=== PATIENT | female | born 1940 | race Caucasian/White ===

== ENCOUNTER 2019-08-10 09:38 | Inpatient (IN) | payer MEDICARE, SELFPAY ==
[2019-08-10] VITALS (24 sets, daily range): BP systolic 99–154; BP diastolic 51–99; PULSE 93–154; RESP 18–31; TEMP 36.2–37.3; O2SAT 91–97; BMI 29.4
--- NOTE | ~2019-08-10 | XR_ITS ---
EXAMINATION: XR chest 2V DATE: 08/10/2019 10:23 INDICATION: Cough, wheezing, shortness of breath, and fever. TECHNIQUE: Frontal and lateral views of the chest were obtained. COMPARISON: Chest 2 views 09/09/2016 FINDINGS: The chest demonstrates clear lungs without pneumonia, pleural effusion, or pneumothorax. Th e heart size is normal. There is a left chest wall pacer with leads in the right atrium and right sherlyn tricle. IMPRESSION: 1. No acute cardiopulmonary disease. Reviewed, dictated and finalized at location A. ATION TANK OPERATOR
--- NOTE | 2019-08-10 09:58 | ED.SOB ---
HPI - SOB/Dyspnea General Chief Complaint: Shortness of Breath/Dyspnea Stated Complaint: COUGH/DIFFICULTY BREATHING Time Seen by Provider: 08/10/19 09:48 Source: patient Mode of arrival: ambulatory Limitations: no limitations History of Present Illness HPI Narrative: Pt is a 79 y/o female who presents to the ED with c/o a productive cough with phlegm that started 2 weeks ago. She reports associated SOB and wheezing. Pt has a H/o AFIB and a pacemaker. Her Chef Passenger Vessel is Dr. Bolaños. She denies a fever or chills. MD elicited complaint: cough Onset (ago): week(s) (2) Timing: constant Associated symptoms: wheezing and other (SOB) Related Data Home Medications Medication Instructions Recorded Confirmed albuterol sulfate [ProAir HFA] 1 inh INHALATION QID 08/10/19 atorvastatin 20 mg PO HS 08/10/19 duloxetine 60 mg PO DAILY 08/10/19 ergocalciferol (vitamin D2) 1,250 mcg PO WEEKLY 08/10/19 [Vitamin D2] metoprolol tartrate 50 mg PO Q12H 08/10/19 olmesartan-hydrochlorothiazide 1 tablet PO DAILY 08/10/19 rivaroxaban [Xarelto] 20 mg PO DAILY 08/10/19 Allergies Allergy/AdvReac Type Severity Reaction Status Date / Time iodine Allergy Severe DIFF Verified 08/10/19 09:54 BREATHING, BACK,LEG PAIN AFTER CONTRAST morphine AdvReac Severe Vomiting Verified 08/10/19 09:54 Review of Systems Review of Systems: All systems reviewed & are unremarkable except as noted in HPI and below Constitutional: Constitutional: Denies chills and Denies fever(s) Respiratory: Respiratory: Reports cough, Reports dyspnea and Reports wheezing [facility] Past Medical History Medical History (Updated 08/10/19 @ 12:30 by Anuel Fuchs MD) Afib Anemia Ankle fracture, right Anxiety Arthritis Asthma Bladder cancer Bronchitis DDD (degenerative disc disease) Depression Diabetes mellitus GERD (gastroesophageal reflux disease) HLD (hyperlipidemia) HTN (hypertension) Kidney stones Left trigger finger Nose fracture MISTI on CPAP Osteoporosis Ovarian cyst Right carpal tunnel syndrome Right rotator cuff tear Surgical History Surgical History (Updated 08/10/19 @ 10:08 by Zara Sadler) H/O colonoscopy H/O dilation and curettage H/O repair of right rotator cuff H/O tubal ligation H/O: hysterectomy History of bladder surgery History of carpal tunnel release History of left knee replacement Hx of tonsillectomy Social History Social History (Updated 08/10/19 @ 10:08 by Zara Sadler) Smoking status: Former smoker Gender identity (if verbalized by the patient): Female Exam Narrative: Exam Narrative: GENERAL: Well-appearing, well-nourished, and in no acute distress. HEAD: Normocephalic, atraumatic. EYES: PERRLA and EOMI. ENT: Nares clear, . Mucous membranes moist. NECK: Supple. CHEST: Coarse breath sounds bilaterally HEART: Irregularly irregular and tachycardic ABDOMEN: Soft, nontender, nondistended, normal active bowel sounds. EXTREMITIES: Normal range of motion. No edema. SKIN: Warm, dry, no rash. NEURO: No focal deficits. Alert and oriented x3. PSYCH: Normal mood and affect. Course Consultations Consultation #1: Discussed case with Guera Vieira NP for the hospitalist. Accepted admission. Date: 08/10/19 Time: 12:18 Vital Signs Vital signs: Vital Signs Temperature 36.5 C 08/10/19 09:41 Pulse Rate 154 H 08/10/19 09:41 Respiratory Rate 24 H 08/10/19 09:41 Blood Pressure 130/89 08/10/19 09:41 Pulse Oximetry 96 08/10/19 09:41 Temperature 36.4 C L 08/10/19 11:30 Pulse Rate 132 H 08/10/19 12:10 Respiratory Rate 24 H 08/10/19 12:10 Blood Pressure 146/55 H 08/10/19 12:10 Pulse Oximetry 96 08/10/19 12:10 MDM - SOB/Dyspnea Lab Data Result diagrams: 08/10/19 09:51 08/10/19 09:51 Labs: Lab Results 08/10/19 08/10/19 Range/Units 09:51 09:51 WBC 12.7 H (4.5-10.0) K/mm3 RBC 3.73 L (4.2-5.4) M/mm3 Hgb 10.4 L (12.0-15.
[2019-08-10 09:59] LABS: Basophils Absolute Auto 0.1 K/mm3 (0.0-0.1); Basophils Percent Auto 0.4 % (0.2-1.2); Eosinophils Absolute Auto 0.1 K/mm3 (0-0.3); Eosinophils Percent Auto 0.4 % (0-4.4); Hematocrit 32.1 % (37.0-47.0); Hemoglobin 10.4 g/dL (12.0-15.0); Immature Granulocyte Absolute 0.07 K/mm3 (0.00-0.031); Immature Granulocyte Percent A 0.6 % (0-0.5); Lymphocytes Percent Auto 18.1 % (18.3-44.2); Mean Corpuscular HGB Conc 32.4 g/dl (32-36); Mean Corpuscular Hemoglobin 27.9 pg (26-34); Mean Corpuscular Volume 86.1 fl (80-100); Mean Platelet Volume 10.2 fl (7.4-10.4); Monocytes Percent Auto 7.6 % (2.6-8.5); Neutrophils Absolute Auto 9.3 K/mm3 (1.3-6.7); Neutrophils Percent Auto 72.9 % (45.5-73.1); Platelet Count Result 300 k/mm3 (150-375); Red Blood Count 3.73 M/mm3 (4.2-5.4); Red Cell Distribution Width 14.2 % (11.5-14.5); White Blood Count 12.7 K/mm3 (4.5-10.0)
[2019-08-10 10:10] LABS: Blood Urea Nitrogen 62 mg/dL (7-17); Calcium 9.1 mg/dL (8.4-10.2); Carbon Dioxide 26 mmol/L (22-30); Chloride 92 mmol/L (98-107); Estimated CRCL calculation 26 ml/min; Estimated Glomerular Filt Rate 27; Glucose 156 mg/dL (65-105); Potassium 2.9 mmol/L (3.4-5.0); Sodium 135 mmol/L (137-145)
[2019-08-10] MEDS: ACETAMINOPHEN 325 MG TABLET 650 MG PO (11:45)
[2019-08-10] MEDS: SODIUM CHLORIDE 0.9% IV 1,000 ML 150 ML IV CONT (11:48)
--- NOTE | 2019-08-10 12:03 | ECG_ITS ---
Measurements Intervals [place] Rate: 148 P: [place]: 0 QRS: 0 QRSD: 89 T: 42 QT: 284 QTc: 447 Interpretive Statements ATRIAL FIBRILLATION WITH RAPID VENTRICULAR RESPONSE ST-T WAVE ABNORMALITY IN ANTEROLATERAL LEADS- CONSIDER ISCHEMIA BASELINE ARTIFACT- I, II, III, AVR, AVL, AVF, V3, V6 ABNORMAL ECG Electronically Signed On 08-10-2019 12:37:53 PEER SPECIALIST by Gregor Cameron D.O.
[2019-08-10] MEDS: POTASSIUM CHLORIDE 20 MEQ PACKET (FOR LIQUID) 40 MEQ PO (12:21)
--- NOTE | 2019-08-10 13:26 | ADMGEN ---
This patient, Colleen James, was admitted to IMU Room 202-01 at 1325. Patient/family oriented to hospital policies and general routines including ID bracelet, bed and alarms, visiting hours, pain management, procedures, bathroom and other care routines, personal items, smoking policy, room service/diet, and visiting hours. Valuables list has been completed. Information on how to activate the Rapid Response Team has been discussed. Patient/Family are encouraged to report perceived risks to care and to ask questions if they do not understand what they are told or what they should do.
[2019-08-10 15:39] LABS: Troponin I 0.012 ng/mL (0.000-0.034)
[2019-08-10] MEDS: ALBUTEROL SULFATE NEB 2.5 MG/0.5 ML INH 5 MG INHALATION ×2 (15:39→20:24)
[2019-08-10] MEDS: IPRATROPIUM BR 0.02% INH SOLN 0.5 MG/2.5 ML VIAL INHALATION ×2 (15:39→20:24)
--- NOTE | 2019-08-10 17:06 | PM.IMHP ---
H&P: HPI History of Present Illness Chief complaint: atrial fib Narrative: Colleen James is a 79 year old female who has a history of asthma and chronic bronchitis. But she denies any COPD. The patient stated that she had been sick for about 3 weeks and had been in bed with on and off fever. Then she felt better for about 2 weeks and then she got sick again and has been sick again for another 2 weeks. She has been coughing up various colors of sputum anywhere from clear to the swift to green. The patient stated she has had a poor appetite for the last couple days and has not taken her medication. She has an inhaler at home but no nebulizer machine. She has sleep apnea but does not wear the CPAP. Was found to be 2.9. She is on hydrochlorothiazide. Which is now on hold. The potassium had been replaced in the emergency room. Her chest x-ray was clear. She was started on Solu-Medrol and nebulizer treatments. She was also found to be in AFib with RVR. She has already been anticoagulated with Xarelto. The patient has been on a Cardizem drip. She is in the low 1 teens with her heart rate now. Date of service 08/10/2019 Review of Systems Review of Systems: Narrative: She feels weak. All systems reviewed & are unremarkable except as noted in HPI and below Constitutional: Constitutional: Reports as per HPI and Reports no additional constitutional complaints Eyes: Eyes: Reports as per HPI and Reports no additional eye complaints ENT: Reports system reviewed and no additional complaints, except as documented and Reports Normal hearing present Cardiovascular: Cardiovascular: Reports no additional cardiovascular complaints Respiratory: Respiratory: Reports no additional respiratory complaints and Reports no additional respiratory complaints Gastrointestinal: Gastrointestinal: Reports as per HPI and Reports no additional gastrointestinal complaints Musculoskeletal: Musculoskeletal: Reports no additional musculoskeletal complaints Integumentary/Breasts: Skin/Breast: Reports system reviewed and no additional complaints, except as docu and Reports as per HPI Neurologic: Reports system reviewed and no additional complaints, except as documented, Reports as per HPI and Reports Normal hearing present Psychiatric: Psychiatric: Reports no additional psychiatric complaints and Reports as per HPI Endocrine: Endocrine: Reports no additional endocrine complaints Hematologic/Lymphatic: Hematologic/Lymphatic: Reports no additional hematologic/lymphatic complaints Allergic/Immunologic: Allergic/Immunologic: Reports no additional allergic/immunologic complaints ON LICENSE OF [facility] Past Medical History Medical History (Updated 08/10/19 @ 17:26 by Guera Vieira NP) Afib Anemia Ankle fracture, left Casted Ankle fracture, right Casted Anxiety Arthritis Asthma Bladder cancer Surgically removed Bronchitis DDD (degenerative disc disease) Depression GERD (gastroesophageal reflux disease) HTN (hypertension) Hyperlipidemia Kidney stones Left trigger finger Nose fracture MISTI on CPAP No longer uses CPAP Osteoporosis Ovarian cyst Right carpal tunnel syndrome Released Right rotator cuff tear Surgical History Surgical History (Updated 08/10/19 @ 17:13 by Guera Vieira NP) H/O colonoscopy H/O dilation and curettage H/O repair of right rotator cuff H/O tubal ligation History of bladder surgery History of carpal tunnel release History of left knee replacement Hx of tonsillectomy S/P removal of ovarian cyst Social History Social History (Updated 08/10/19 @ 17:14 by Guera Vieira NP) Social History: The patient stated that she smokes a cigarette occasionally when she drinks. She stated this is very rare. She has 1 biological daughter and she adopted a granddaughter who lives with her. The granddaughter and her 2 children live with the patient. The patient is from her and he lives with his daughter. She does not hav
[2019-08-10] MEDS: methylPREDNISolone SOD SUCC 125 MG VIAL 60 MG IV PUSH (18:16)
[2019-08-10] MEDS: ERGOCALCIFEROL 50,000 UNIT CAPSULE 50000 UNITS PO (18:21)
[2019-08-10 18:28] LABS: Blood Urea Nitrogen 61 mg/dL (7-17); Calcium 8.8 mg/dL (8.4-10.2); Carbon Dioxide 25 mmol/L (22-30); Chloride 95 mmol/L (98-107); Estimated CRCL calculation 24 ml/min; Estimated Glomerular Filt Rate 26; Glucose 149 mg/dL (65-105); Potassium 3.5 mmol/L (3.4-5.0); Sodium 135 mmol/L (137-145)
[2019-08-10 18:42] LABS: Troponin I 0.013 ng/mL (0.000-0.034)
[2019-08-10] MEDS: ATORVASTATIN 20 MG TABLET PO (20:33)
[2019-08-11] VITALS (23 sets, daily range): BP systolic 116–137; BP diastolic 43–63; PULSE 73–115; RESP 12–22; TEMP 36–36.4; O2SAT 96–98
[2019-08-11] MEDS: methylPREDNISolone SOD SUCC 125 MG VIAL 60 MG IV PUSH ×5 (00:13→23:17)
[2019-08-11] MEDS: IPRATROPIUM BR 0.02% INH SOLN 0.5 MG/2.5 ML VIAL INHALATION ×4 (02:05→19:43)
[2019-08-11] MEDS: ALBUTEROL SULFATE NEB 2.5 MG/0.5 ML INH 5 MG INHALATION ×4 (02:05→19:43)
[2019-08-11 05:06] LABS: Basophils Percent Auto 0.3 % (0.2-1.2); Hematocrit 28.4 % (37.0-47.0); Hemoglobin 9.1 g/dL (12.0-15.0); Immature Granulocyte Percent A 1.1 % (0-0.5); Lymphocytes Absolute Auto 0.61 K/mm3 (0.9-3.2); Lymphocytes Percent Auto 6.6 % (18.3-44.2); Mean Corpuscular Hemoglobin 27.8 pg (26-34); Mean Corpuscular Volume 86.9 fl (80-100); Mean Platelet Volume 10.3 fl (7.4-10.4); Monocytes Absolute Auto 0.1 K/mm3 (0.1-0.6); Monocytes Percent Auto 1.4 % (2.6-8.5); Neutrophils Absolute Auto 8.3 K/mm3 (1.3-6.7); Neutrophils Percent Auto 90.6 % (45.5-73.1); Platelet Count Result 257 k/mm3 (150-375); Red Blood Count 3.27 M/mm3 (4.2-5.4); Red Cell Distribution Width 14.2 % (11.5-14.5); White Blood Count 9.2 K/mm3 (4.5-10.0)
[2019-08-11 05:22] LABS: Blood Urea Nitrogen 59 mg/dL (7-17); Calcium 9.2 mg/dL (8.4-10.2); Carbon Dioxide 23 mmol/L (22-30); Chloride 100 mmol/L (98-107); Estimated CRCL calculation 28 ml/min; Estimated Glomerular Filt Rate 31; Glucose 285 mg/dL (65-105); Magnesium 2.2 mg/dL (1.6-2.3); Potassium 3.4 mmol/L (3.4-5.0); Sodium 134 mmol/L (137-145)
[2019-08-11 06:11] LABS: Thyroid Stimulating Hormone Reflex 0.102 uIU/mL (0.465-4.68)
[2019-08-11] MEDS: DULOXETINE 60 MG CAPSULE.DR PO (08:57)
[2019-08-11 09:40] LABS: Total Triiodothyronine (T3) 0.68 NG/ML (0.97-1.69)
[2019-08-11] MEDS: ACETAMINOPHEN 325 MG TABLET 650 MG PO (10:35)
[2019-08-11] MEDS: POTASSIUM CHLORIDE 20 MEQ PACKET (FOR LIQUID) 40 MEQ PO (10:35)
[2019-08-11] MEDS: RIVAROXABAN 20 MG TABLET PO (17:22)
--- NOTE | 2019-08-11 18:26 | PM.IMPN ---
Progress Note: A&P Assessment and Plan (1) Bronchitis: Code(s): J40 - Bronchitis, not specified as acute or chronic Status: Acute Assessment and Plan: Continue nebulizer treatments. His blood cultures are pending. Patient was started on a Zithromax and Rocephin. She has mildly elevated white count. She was also started on Solu-Medrol. 08/11/19 18:26 Patient is 79-year-old female with history of asthma presented emergency department with complaint of cough shortness of breath is been going on for last 2-3 weeks on and off patient is a smoker but not heavy patient does have history of bronchitis and was started on Solu-Medrol updraft and antibiotics patient states feeling much better compared to when she arrived see still has a persistent cough, is also found to have atrial fibrillation with RVR patient was started on diltiazem drip and Xarelto rate is now trending down, patient denies any complaints of chest pain palpitation patient states he never feels any palpitation or chest pain, (2) Hypokalemia: Code(s): E87.6 - Hypokalemia Status: Acute Assessment and Plan: Patient was given oral form and will repeat labs here shortly and replace when needed. (3) Atrial fibrillation with rapid ventricular response: Code(s): I48.91 - Unspecified atrial fibrillation Status: Acute Assessment and Plan: The patient had not taken her medication because she was feeling ill for last couple days. Continue with Xarelto. She is currently on a Cardizem drip. I am holding metoprolol while she is on the Cardizem drip. May consider placing her back on metoprolol pills once her heart rate is controlled. Will consult employee development specialist further recommendation (4) Asthma with exacerbation: Qualifiers: Asthma persistence: persistent Asthma severity: moderate Qualified Code(s): J45.41 - Moderate persistent asthma with (acute) exacerbation Code(s): J45.901 - Unspecified asthma with (acute) exacerbation Status: Acute Assessment and Plan: Continue with Solu-Medrol and neb treatments. She is on antibiotics. Will continue to monitor patient as her symptoms improved will taper Solu-Medrol to prednisone (5) HTN (hypertension): Code(s): I10 - Essential (primary) hypertension Status: Chronic Assessment and Plan: Patient is on a Cardizem drip in her metoprolol is on hold at this time. olmesartan hydrochlorothiazide are on hold at this time (6) Depression: Code(s): F32.9 - Major depressive disorder, single episode, unspecified Status: Chronic Assessment and Plan: Continue duloxetine. (7) Anxiety: Code(s): F41.9 - Anxiety disorder, unspecified Status: Chronic Assessment and Plan: Continue with home medication. She is on duloxetine. (8) ARF (acute renal failure): Code(s): N17.9 - Acute kidney failure, unspecified Status: Acute Assessment and Plan: Most likely dehydrated because she has had poor oral intake. Repeat BMP this evening and again in the morning. Diuretic on hold as well as Arb. (9) Hyperlipidemia: Code(s): E78.5 - Hyperlipidemia, unspecified Status: Chronic Assessment and Plan: Continue with atorvastatin. Subjective Date/time seen: 08/11/19 18:26 Patient is 79-year-old female with history of asthma presented emergency department with complaint of cough shortness of breath is been going on for last 2-3 weeks on and off patient is a smoker but not heavy patient does have history of bronchitis and was started on Solu-Medrol updraft and antibiotics patient states feeling much better compared to when she arrived see still has a persistent cough, is also found to have atrial fibrillation with RVR patient was started on diltiazem drip and Xarelto rate is now trending down, patient denies any complaints of chest pain palpitation patient states he never feels any palpitation or chest pain,
[2019-08-11] MEDS: BENZONATATE 100 MG CAPSULE 200 MG PO (19:37)
[2019-08-11] MEDS: ATORVASTATIN 20 MG TABLET PO (20:57)
[2019-08-12] VITALS (25 sets, daily range): BP systolic 97–120; BP diastolic 47–95; PULSE 69–104; RESP 16–20; TEMP 35.6–36.7; O2SAT 95–99
[2019-08-12] MEDS: IPRATROPIUM BR 0.02% INH SOLN 0.5 MG/2.5 ML VIAL INHALATION ×4 (03:52→21:19)
[2019-08-12] MEDS: ALBUTEROL SULFATE NEB 2.5 MG/0.5 ML INH 5 MG INHALATION ×4 (03:52→21:19)
[2019-08-12 05:19] LABS: Hematocrit 28.4 % (37.0-47.0); Hemoglobin 9.1 g/dL (12.0-15.0); Mean Corpuscular Hemoglobin 27.8 pg (26-34); Mean Corpuscular Volume 86.9 fl (80-100); Mean Platelet Volume 10.5 fl (7.4-10.4); Platelet Count Result 327 k/mm3 (150-375); Red Blood Count 3.27 M/mm3 (4.2-5.4); Red Cell Distribution Width 14.3 % (11.5-14.5); White Blood Count 17.5 K/mm3 (4.5-10.0)
[2019-08-12 05:37] LABS: Blood Urea Nitrogen 65 mg/dL (7-17); Calcium 9.8 mg/dL (8.4-10.2); Carbon Dioxide 21 mmol/L (22-30); Chloride 93 mmol/L (98-107); Estimated CRCL calculation 27 ml/min; Estimated Glomerular Filt Rate 29; Glucose 277 mg/dL (65-105); Potassium 2.9 mmol/L (3.4-5.0); Sodium 134 mmol/L (137-145)
[2019-08-12] MEDS: methylPREDNISolone SOD SUCC 125 MG VIAL 60 MG IV PUSH ×2 (05:52→12:56)
[2019-08-12] MEDS: INSULIN ASPART (*BKC) 100 UNITS/ML SUB-Q ×3 (07:52→17:36)
[2019-08-12] MEDS: BENZONATATE 100 MG CAPSULE 200 MG PO ×3 (07:53→16:28)
[2019-08-12] MEDS: DULOXETINE 60 MG CAPSULE.DR PO (07:53)
[2019-08-12 07:54] LABS: Glucose Point of Care 282 (65-105)
--- NOTE | 2019-08-12 11:21 | PM.CNCAR ---
Assessment and Plan Additional Plan 79-year-old lady with a history of both atrial fibrillation and atrial flutter. Maintenance treatment has been metoprolol and Xarelto. She has a dual-chamber [employer] pacing device that was implanted less than 2 years ago by her communications specialist, Dr. Bolaños. Her heart rate is well controlled with diltiazem and in this setting I am being asked to see her in consultation I would recommend: Initiating antiarrhythmic therapy with sotalol. The patient was on this drug in the past without any problems or off proarrhythmia and appears to have been able to take it safely. If she converts to sinus rhythm or becomes slower the IV diltiazem can be discontinued and weaned. If atrial fib persists in this hospital stay then I would recommend DC cardioversion. I will have the [employer] counter sales representative interrogate the pacemaker device tomorrow which would give us a very accurate idea of how long she has been in atrial fib. Umang Orozco MD [facility] History of Present Illness History of Present Illness Consult date/time: Date of service: 08/12/19 11:21 Consult reason: atrial fibrillation Reason For Visit: atrial fib Narrative: This is a 79-year-old patient with a history of atrial fibrillation after seeing at the request of the hospitalist for assistance with her evaluation and management. She is a with established patient of Dr. Mack of our practice. She came into the hospital on Tuesday morning, 08/10/2019 with a 2-3 week history of coughing and feeling unwell. She was in atrial fibrillation with rapid ventricular response in the emergency department and was not particularly aware of this. She takes metoprolol and Xarelto chronically for her atrial fib and she was placed on IV diltiazem in the emergency room and it looks like her metoprolol has been stopped. Her heart rate is well controlled her heart rate is in the 90s at this time and she see does not seem to be in any significant distress although she still states she has persistent coughing. Her chest x-ray looks relatively clear to me. She continues on IV diltiazem since Tuesday morning at this point approximately 48 hours later I am asked to see her in consultation. The patient has an established history of both atrial fibrillation and atrial flutter. She had her history dates back to I believe at least 2012. The patient had previously been treated with antiarrhythmic therapy in the form of sotalol. Dr. Taylor had for a while had the patient on this agent she was apparently doing well and she was shifted back to metoprolol several years ago. Because of an episode of persistent atrial flutter that warranted cardioversion she was referred to see Dr. Bolaños for electrophysiology consultation. He cardioverted that again and had her on the beta-luly. Apparently in sinus rhythm she had some concerning pop [place] arrhythmias and episodes of sinus arrest and so about a year and a half ago she had a dual-chamber pacemaker placed. Dr. Bolaños still sees the patient in his office and follows the device. The patient has a [employer]ron[employer] pacemaker. She tells me that it is functioning well. Her other comorbidity that pertains to this current situation is that she has sleep apnea which was identified a number of years ago and has been now on treated. She was referred to see a sleep medicine specialist but elected not to pursue that. The patient is known not to have coronary artery disease at the time of her initial evaluation she had a negative coronary angiogram performed. In this setting she is being seen today in consultation. She has been taking her Xarelto without interruption Review of Systems Constitutional: Constitutional: Reports no additional constitutional complaints Eyes: Eyes: Reports no additional eye complaints ENT: Reports system reviewed and no additional complaints, except as documented Cardiovascular: Cardiovascular: Reports palpitations Respir
[2019-08-12 12:09] LABS: Glucose Point of Care 268 (65-105)
[2019-08-12] MEDS: SOTALOL HCL 80 MG TABLET PO ×2 (12:56→21:08)
--- NOTE | 2019-08-12 13:04 | PM.IMPN ---
Progress Note: A&P Assessment and Plan (1) Atrial fibrillation with rapid ventricular response: Code(s): I48.91 - Unspecified atrial fibrillation Status: Acute Assessment and Plan: Patient was placed on IV diltiazem on admission. Cardiology now consulted and appreciate input. Oral sotalol initiated in attempt to convert. May need cardioversion if does not convert from atrial fibrillation. Remains on IV diltiazem for now but may be able to taper and discontinue if needed. Continue Xarelto for anticoagulation. Telemetry reviewed on 08/12/2019 with atrial fibrillation with heart rate acceptable present time. Will continue to monitor. (2) Hypokalemia: Code(s): E87.6 - Hypokalemia Status: Acute Assessment and Plan: Potassium remains low at 2.9 today. Will give oral replacement. Recheck later today. Continue to replace until corrected. Repeat potassium 3.6. Patient apparently was not able to take both have earlier potassium pill. Will give lower dose potassium 10 mEq this evening. Will repeat in a.m.. Continue to replace as needed. (3) ARF (acute renal failure): Qualifiers: Acute renal failure type: unspecified Qualified Code(s): N17.9 - Acute kidney failure, unspecified Code(s): N17.9 - Acute kidney failure, unspecified Status: Acute Assessment and Plan: Most likely result of dehydration. Creatinine stable at 1.70 today. Home olmesartan HCTZ on hold. Will continue to monitor. (4) Bronchitis: Code(s): J40 - Bronchitis, not specified as acute or chronic Status: Acute Assessment and Plan: Chest x-ray reviewed from admission with no acute cardiopulmonary disease. Still has cough for which she has Ai [place]. Does not want to use cough syrup. On room air. Will transition from IV azithromycin and ceftriaxone to oral cefdinir. Will also transition from IV Solu-Medrol to tapering prednisone. Will continue to monitor. (5) Asthma with exacerbation: Qualifiers: Asthma persistence: persistent Asthma severity: moderate Qualified Code(s): J45.41 - Moderate persistent asthma with (acute) exacerbation Code(s): J45.901 - Unspecified asthma with (acute) exacerbation Status: Acute Assessment and Plan: Will transition to oral antibiotics as noted above. Transition to oral steroids. Continue nebulizer treatments. Will monitor. (6) HTN (hypertension): Qualifiers: Hypertension type: essential hypertension Qualified Code(s): I10 - Essential (primary) hypertension Code(s): I10 - Essential (primary) hypertension Status: Chronic Assessment and Plan: Blood pressure reviewed on 08/12/2019 and low normal but stable. Will continue to monitor on IV diltiazem and sotalol. Home olmesartan HCTZ on hold. (7) Hyperlipidemia: Qualifiers: Hyperlipidemia type: unspecified Qualified Code(s): E78.5 - Hyperlipidemia, unspecified Code(s): E78.5 - Hyperlipidemia, unspecified Status: Chronic Assessment and Plan: Continue with atorvastatin. (8) Depression: Qualifiers: Depression Type: unspecified Qualified Code(s): F32.9 - Major depressive disorder, single episode, unspecified Code(s): F32.9 - Major depressive disorder, single episode, unspecified Status: Chronic Assessment and Plan: Mood stable. Continue duloxetine. (9) Anxiety: Code(s): F41.9 - Anxiety disorder, unspecified Status: Chronic Assessment and Plan: Mood stable. Continue duloxetine. (10) DVT prophylaxis: Code(s): Z29.9 - Encounter for prophylactic measures, unspecified Status: Acute Assessment and Plan: On Xarelto. Time Spent With Patient Time with patient: 15 - 25 minutes Subjective Date/time seen: 08/12/19 13:04 Interval history: Date of Service: 08/12/2019. Admitted with atrial fibrillation with RVR, bronchitis,
[2019-08-12] MEDS: POTASSIUM CHLORIDE 20 MEQ TABLET.ER 40 MEQ PO (13:33)
[2019-08-12 16:16] LABS: Potassium 3.6 mmol/L (3.4-5.0)
[2019-08-12] MEDS: RIVAROXABAN 20 MG TABLET PO (16:28)
[2019-08-12 16:54] LABS: Glucose Point of Care 202 (65-105)
[2019-08-12] MEDS: POTASSIUM CHLORIDE 10 MEQ TABLET PO (17:36)
[2019-08-12 20:25] LABS: Glucose Point of Care 141 (65-105)
[2019-08-12] MEDS: CEFDINIR 300 MG CAPSULE PO (21:07)
[2019-08-12] MEDS: ATORVASTATIN 20 MG TABLET PO (21:07)
[2019-08-13] VITALS (21 sets, daily range): BP systolic 102–109; BP diastolic 41–71; PULSE 76–111; RESP 12–20; TEMP 36.3–36.7; O2SAT 94–98
[2019-08-13] MEDS: ALBUTEROL SULFATE NEB 2.5 MG/0.5 ML INH 5 MG INHALATION ×4 (03:14→21:26)
[2019-08-13] MEDS: IPRATROPIUM BR 0.02% INH SOLN 0.5 MG/2.5 ML VIAL INHALATION ×4 (03:14→21:27)
[2019-08-13 05:03] LABS: Hematocrit 28.6 % (37.0-47.0); Hemoglobin 9.1 g/dL (12.0-15.0); Mean Corpuscular HGB Conc 31.8 g/dl (32-36); Mean Corpuscular Hemoglobin 27.8 pg (26-34); Mean Corpuscular Volume 87.5 fl (80-100); Platelet Count Result 356 k/mm3 (150-375); Red Blood Count 3.27 M/mm3 (4.2-5.4); Red Cell Distribution Width 14.5 % (11.5-14.5); White Blood Count 15.7 K/mm3 (4.5-10.0)
[2019-08-13 05:24] LABS: Blood Urea Nitrogen 77 mg/dL (7-17); Calcium 9.9 mg/dL (8.4-10.2); Carbon Dioxide 25 mmol/L (22-30); Chloride 100 mmol/L (98-107); Estimated CRCL calculation 25 ml/min; Estimated Glomerular Filt Rate 27; Glucose 209 mg/dL (65-105); Magnesium 2.2 mg/dL (1.6-2.3); Potassium 4.2 mmol/L (3.4-5.0); Sodium 134 mmol/L (137-145)
[2019-08-13 07:39] LABS: Glucose Point of Care 161 (65-105)
--- NOTE | 2019-08-13 09:46 | PM.IMPN ---
Progress Note: A&P Assessment and Plan (1) Atrial fibrillation with rapid ventricular response: Code(s): I48.91 - Unspecified atrial fibrillation Status: Acute Assessment and Plan: Patient was placed on IV diltiazem on admission. Cardiology has been consulted and appreciate input. Telemetry reviewed on 08/13/2019 with patient remaining in atrial fibrillation with heart rate controlled. Started on oral sotalol on 08/12/2019 by Cardiology in attempt to convert. IV diltiazem was discontinued last evening. Patient aware may need cardioversion if unable to convert from atrial fibrillation. On Xarelto for anticoagulation. Will continue to monitor. Will have PT/OT see patient as she reports she was not moving much prior to admission. (2) Hypokalemia: Code(s): E87.6 - Hypokalemia Status: Acute Assessment and Plan: Potassium at 4.2 today. Will continue current replacement of 20 mEq daily. Patient reports she was taking this at home. Will continue to monitor. Adjust replacement as needed. (3) ARF (acute renal failure): Qualifiers: Acute renal failure type: unspecified Qualified Code(s): N17.9 - Acute kidney failure, unspecified Code(s): N17.9 - Acute kidney failure, unspecified Status: Acute Assessment and Plan: Remains essentially unchanged at 1.80 today. Although this is higher than her known previous baseline, maybe new baseline and may actually have chronic kidney disease. Home olmesartan HCTZ remains on hold. Will continue to monitor. (4) Bronchitis: Code(s): J40 - Bronchitis, not specified as acute or chronic Status: Acute Assessment and Plan: Chest x-ray reviewed from admission with no acute cardiopulmonary disease. Remains on room air. Was on IV azithromycin ceftriaxone but now transitioned to oral cefdinir as of last night. Transition to oral tapering prednisone today. Clinically improving. Will continue to monitor. (5) Asthma with exacerbation: Qualifiers: Asthma persistence: persistent Asthma severity: moderate Qualified Code(s): J45.41 - Moderate persistent asthma with (acute) exacerbation Code(s): J45.901 - Unspecified asthma with (acute) exacerbation Status: Acute Assessment and Plan: Continues to improve clinically. Continue nebulizer treatments along with oral cefdinir and prednisone. (6) HTN (hypertension): Qualifiers: Hypertension type: essential hypertension Qualified Code(s): I10 - Essential (primary) hypertension Code(s): I10 - Essential (primary) hypertension Status: Chronic Assessment and Plan: Blood pressure reviewed on 08/13/2019. Remains in low-normal range but stable. Continue to monitor with sotalol in place. Home olmesartan HCTZ on hold. (7) Hyperlipidemia: Qualifiers: Hyperlipidemia type: unspecified Qualified Code(s): E78.5 - Hyperlipidemia, unspecified Code(s): E78.5 - Hyperlipidemia, unspecified Status: Chronic Assessment and Plan: Continue atorvastatin. (8) Depression: Qualifiers: Depression Type: unspecified Qualified Code(s): F32.9 - Major depressive disorder, single episode, unspecified Code(s): F32.9 - Major depressive disorder, single episode, unspecified Status: Chronic Assessment and Plan: Mood is stable. Continue duloxetine. (9) Anxiety: Code(s): F41.9 - Anxiety disorder, unspecified Status: Chronic Assessment and Plan: Mood remains stable. Continue duloxetine. (10) DVT prophylaxis: Code(s): Z29.9 - Encounter for prophylactic measures, unspecified Status: Acute Assessment and Plan: On Xarelto. Time Spent With Patient Time with patient: 15 - 25 minutes Subjective Date/time seen: 08/13/19 09:46 Interval history: Date of Service: 08/13/2019. Admitted with atrial fibrillation with RVR, bronchitis, acute zaki
[2019-08-13] MEDS: predniSONE 10 MG TABLET 40 MG PO (10:53)
[2019-08-13] MEDS: POTASSIUM CHLORIDE 10 MEQ TABLET.ER 20 MEQ PO (10:53)
[2019-08-13] MEDS: BENZONATATE 100 MG CAPSULE 200 MG PO ×3 (10:53→16:24)
[2019-08-13] MEDS: SOTALOL HCL 80 MG TABLET PO ×2 (10:54→21:06)
[2019-08-13] MEDS: DULOXETINE 60 MG CAPSULE.DR PO (10:54)
[2019-08-13] MEDS: CEFDINIR 300 MG CAPSULE PO ×2 (10:55→22:34)
--- NOTE | 2019-08-13 11:17 | ECG_ITS ---
Measurements Intervals [place] Rate: 85 P: [place]: 0 QRS: 7 QRSD: 90 T: 82 QT: 354 QTc: 421 Interpretive Statements ATRIAL FIBRILLATION EARLY PRECORDIAL R/S TRANSITION NONSPECIFIC T-WAVE ABNORMALITY- DIFFUSE LEADS BASELINE ARTIFACT- II, III, AVF ABNORMAL ECG Electronically Signed On 08-13-2019 11:53:20 COMMERCIAL SHEET METAL FOREMAN by Gregor Cameron D.O.
[2019-08-13 12:16] LABS: Glucose Point of Care 239 (65-105)
[2019-08-13] MEDS: INSULIN ASPART (*BKC) 100 UNITS/ML SUB-Q (13:04)
--- NOTE | 2019-08-13 15:35 | PM.PNCARD ---
Progress Note: A&P Assessment and Plan (1) Atrial fibrillation with rapid ventricular response: Code(s): I48.91 - Unspecified atrial fibrillation Status: Acute Assessment and Plan: Heart rate reasonably controlled, AFib persistent. Continue sotalol load. Discussed cardioversion prior to discharge, however, patient had missed couple doses of Xarelto prior to admission and as such would require RAFI guidance. Given patient description of dental infection and significant illness for to 3 weeks prior to admission coupled with ongoing chills and drenching night sweats will obtain 2D echocardiogram to assess for vegetation. Blood cultures x2, however, patient has been receiving intravenous antibiotics and more recently oral cefdinir. Continue systemic anticoagulation. Anemia stable. Further recommendations after review 2D echo. (2) HTN (hypertension): Qualifiers: Hypertension type: essential hypertension Qualified Code(s): I10 - Essential (primary) hypertension Code(s): I10 - Essential (primary) hypertension Status: Chronic Assessment and Plan: Control, no acute issues. (3) Pacemaker: Code(s): Z95.0 - Presence of cardiac pacemaker Status: Acute Assessment and Plan: Pacemaker interrogation personally reviewed at bedside. Persistent atrial fibrillation for the past 6 days with intermittent episodes prior to that. Normal device function. (4) ARF (acute renal failure): Qualifiers: Acute renal failure type: unspecified Qualified Code(s): N17.9 - Acute kidney failure, unspecified Code(s): N17.9 - Acute kidney failure, unspecified Status: Acute Assessment and Plan: Renal function stable. Dosing of Xarelto according to renal function most appropriate with 15 mg at bedtime. Subjective Date/time seen: Date of service: 08/13/19 15:35 Follow-up for atrial fibrillation Remains in atrial fibrillation. Patient states he feels better since admission. Denies palpitations or significant shortness of breath. Occasional cough but now productive. No fevers although admits to chills since admission and night sweats which she has had for several weeks. Night sweats occasionally drenching she has. No chest pain. [employer] financial representative at bedside persistent atrial fibrillation for the past 6 days (beginning 08/08/2019), normal device function. Overall AFib burden 29% Review of Systems Review of Systems: All systems reviewed & are unremarkable except as noted in HPI and below Constitutional: Constitutional: Reports as per HPI, Reports no additional constitutional complaints, Reports chills, Reports fatigue and Reports night sweats Eyes: Eyes: Reports as per HPI and Reports no additional eye complaints ENT: Reports system reviewed and no additional complaints, except as documented and Reports as per HPI Cardiovascular: Cardiovascular: Reports as per HPI and Reports palpitations Respiratory: Respiratory: Reports as per HPI, Reports cough and Reports dyspnea Gastrointestinal: Gastrointestinal: Reports as per HPI, Reports no additional gastrointestinal complaints, Denies melena and Denies hematochezia Genitourinary: Genitourinary: Reports as per HPI Musculoskeletal: Musculoskeletal: Reports no additional musculoskeletal complaints and Reports as per HPI Integumentary/Breasts: Skin/Breast: Reports system reviewed and no additional complaints, except as docu and Reports as per HPI Neurologic: Reports system reviewed and no additional complaints, except as documented and Reports as per HPI Psychiatric: Psychiatric: Reports no additional psychiatric complaints, Reports as per HPI and Denies confusion Endocrine: Endocrine: Reports no additional endocrine complaints and Reports palpitations Hematologic/Lymphatic: Hematologic/Lymphatic: Reports no additional hematologic/lymphatic complaints Allergic/Immunologic: Allergic/Immunologic: Repo
[2019-08-13] MEDS: RIVAROXABAN 15 MG TABLET PO (16:40)
[2019-08-13 16:59] LABS: Glucose Point of Care 183 (65-105)
[2019-08-13 20:49] LABS: Glucose Point of Care 236 (65-105)
[2019-08-13] MEDS: ATORVASTATIN 20 MG TABLET PO (21:06)
[2019-08-14] VITALS (26 sets, daily range): BP systolic 115–136; BP diastolic 48–73; PULSE 16–105; RESP 16–70; TEMP 35.8–36.7; O2SAT 96–98
[2019-08-14] MEDS: IPRATROPIUM BR 0.02% INH SOLN 0.5 MG/2.5 ML VIAL INHALATION ×4 (02:07→21:16)
[2019-08-14] MEDS: ALBUTEROL SULFATE NEB 2.5 MG/0.5 ML INH 5 MG INHALATION ×4 (02:08→21:15)
[2019-08-14 04:45] LABS: Hematocrit 29.9 % (37.0-47.0); Hemoglobin 9.8 g/dL (12.0-15.0); Mean Corpuscular HGB Conc 32.8 g/dl (32-36); Mean Corpuscular Hemoglobin 28.2 pg (26-34); Mean Corpuscular Volume 86.2 fl (80-100); Mean Platelet Volume 9.6 fl (7.4-10.4); Platelet Count Result 309 k/mm3 (150-375); Red Blood Count 3.47 M/mm3 (4.2-5.4); Red Cell Distribution Width 14.3 % (11.5-14.5); White Blood Count 14.7 K/mm3 (4.5-10.0)
[2019-08-14 05:10] LABS: Blood Urea Nitrogen 66 mg/dL (7-17); Calcium 9.8 mg/dL (8.4-10.2); Carbon Dioxide 26 mmol/L (22-30); Chloride 105 mmol/L (98-107); Estimated CRCL calculation 33 ml/min; Estimated Glomerular Filt Rate 36; Glucose 181 mg/dL (65-105); Potassium 4.8 mmol/L (3.4-5.0); Sodium 137 mmol/L (137-145)
[2019-08-14 07:51] LABS: Glucose Point of Care 152 (65-105)
--- NOTE | 2019-08-14 08:15 | PCOTNOTE ---
Attempted to see for OT eval. Patient undergoing an echo at this time. Will continue to attempt.
[2019-08-14] MEDS: SOTALOL HCL 80 MG TABLET PO ×2 (09:25→20:13)
[2019-08-14] MEDS: DULOXETINE 60 MG CAPSULE.DR PO (09:26)
[2019-08-14] MEDS: predniSONE 10 MG TABLET 40 MG PO (09:27)
[2019-08-14] MEDS: CEFDINIR 300 MG CAPSULE PO ×2 (09:27→20:13)
[2019-08-14] MEDS: POTASSIUM CHLORIDE 10 MEQ TABLET.ER 20 MEQ PO (09:27)
[2019-08-14] MEDS: BENZONATATE 100 MG CAPSULE 200 MG PO ×3 (09:28→16:34)
[2019-08-14 12:03] LABS: Glucose Point of Care 184 (65-105)
--- NOTE | 2019-08-14 13:53 | ECG_ITS ---
Measurements Intervals [place] Rate: 96 P: VT: 0 QRS: -7 QRSD: 89 T: 77 QT: 376 QTc: 476 Interpretive Statements ATRIAL FIBRILLATION NONSPECIFIC T-WAVE ABNORMALITY- ANTEROLAT/LAT LEADS BASELINE ARTIFACT- II, III, AVL, AVF, V2 ABNORMAL ECG Electronically Signed On 08-14-2019 14:30:03 [employer] UTILITY WORKER by Gregor Cameron D.O.
--- NOTE | 2019-08-14 14:11 | PM.PNCARD ---
Progress Note: A&P Assessment and Plan (1) Atrial fibrillation with rapid ventricular response: Code(s): I48.91 - Unspecified atrial fibrillation Status: Acute Assessment and Plan: Heart rate nicely controlled, AFib persistent. Continue sotalol load. Has had 5 doses of sotalol. Anticoagulated with Xarelto. Due to her illness she admits to missing more than a few doses. Will need RAFI guided cardioversion. Echo:Left ventricular chamber size and systolic function are normal with no regional wall motion abnormalities with an estimated ejection fraction of 60-65%. Diastolic dysfunction grade 2 is present. Mild concentric LVH. Linear artifact in right ventricle suggestive of pacemaker lead(s), or ICD lead(s). There is mild mitral valve regurgitation. There is mild tricuspid valve regurgitation. Mild pulmonary hypertension, estimated pulmonary arterial systolic pressure is 40 mmHg. If remains in atrial fibrillation, will plan RAFI guided cardioversion in the morning. Check BMP and magnesium as well as EKG in the morning. (2) HTN (hypertension): Qualifiers: Hypertension type: essential hypertension Qualified Code(s): I10 - Essential (primary) hypertension Code(s): I10 - Essential (primary) hypertension Status: Chronic Assessment and Plan: Controled. (3) Pacemaker: Code(s): Z95.0 - Presence of cardiac pacemaker Status: Acute Assessment and Plan: Pacemaker interrogation 08/13/[address] Taylor. Persistent atrial fibrillation for the past 6 days with intermittent episodes prior to that. Normal device function. (4) ARF (acute renal failure): Qualifiers: Acute renal failure type: unspecified Qualified Code(s): N17.9 - Acute kidney failure, unspecified Code(s): N17.9 - Acute kidney failure, unspecified Status: Acute Assessment and Plan: Renal function stable. Dosing of Xarelto according to renal function most appropriate with 15 mg at bedtime. Additional Plan Plan discussed with Dr. Orozco [id number] 08/14/2019 Subjective Date/time seen: 08/14/19 14:11 Interval history: Follow-up for: Atrial fibrillation with rapid ventricular response, acute renal failure, bronchitis Date of service: 08/14/2019 Subjective: Feeling somewhat better. No chest discomfort. Does have upper abdominal discomfort with cough. Denied shortness of breath or lightheadedness. No palpitations. Review of Systems Constitutional: Constitutional: Denies chills, Denies fatigue and Denies night sweats Eyes: Eyes: Denies blurry vision ENT: Reports Normal hearing present and Denies epistaxis Cardiovascular: Cardiovascular: Denies chest pain at rest, Denies chest pain with activity, Denies palpitations, Denies dyspnea and Denies dyspnea on exertion Respiratory: Respiratory: Reports cough (Occasionally productive of green secretions) and Denies dyspnea Gastrointestinal: Gastrointestinal: Reports abdominal pain (Muscular from cough), Denies melena, Denies hematochezia, Denies nausea and Denies vomiting Genitourinary: Genitourinary: Denies hematuria Integumentary/Breasts: Skin/Breast: Denies unusual bruising Neurologic: Denies confusion Psychiatric: Psychiatric: Denies behavioral changes Endocrine: Endocrine: Reports fatigue Hematologic/Lymphatic: Hematologic/Lymphatic: Denies easy bleeding and Denies easy bruising Allergic/Immunologic: Allergic/Immunologic: Denies lip swelling Exam Const: General: comfortable and no acute distress; No confusion Orientation/consciousness: oriented to person, oriented to place, oriented to time, patient oriented x3 and No confusion Other: Well-developed well-nourished white female appears her stated age is in no distress lying supine in b
--- NOTE | 2019-08-14 16:01 | ECHO_ITS ---
Patient Info Name: Colleen James Age: 79 years : 1940 Gender: Female Ht: 66 in Wt: 189 lbs BSA: 2.02 m2 HR: 66 bpm BP: 123 / 48 mmHg Heart Rhythm: Atrial Fibrillation Technical Quality: Fair Exam Date: 08/14/2019 7:47 AM Exam Location: [facility] Patient Status: Inpatient Admit Date: 08/10/2019 Staff Ordering Physician: Charli Taylor MD Building Drafting Officer: Sindhu White RDCS Attending Provider: Talib Johnson MD Referring Physician: Brandon TRAN; Exam Type: CA echo doppler color flow Study Info Indications I48.1 - Persistent atrial fibrillation Complete two-dimensional, color flow and Doppler transthoracic echocardiogram is performed. Summary 1. Left ventricular chamber size and systolic function are normal with no regional wall motion abnormalities with an estimated ejection fraction of 60-65%. Diastolic dysfunction grade 2 is present. Mild concentric LVH. 2. Linear artifact in right ventricle suggestive of pacemaker lead(s), or ICD lead(s). 3. There is mild mitral valve regurgitation. 4. There is mild tricuspid valve regurgitation. 5. Mild pulmonary hypertension, estimated pulmonary arterial systolic pressure is 40 mmHg. 6. Atrial fibrillation. Left Ventricle Left ventricular chamber dimension is normal. Left ventricular systolic function is normal, estimated at 60-65%. There is mildly increased left ventricular wall thickness. Left ventricular septal wall motion is normal. The left ventricular diastolic function is grade II diastolic dysfunction. Left ventricular chamber size and systolic function are normal with no regional wall motion abnormalities with an estimated ejection fraction of 60-65%. Diastolic dysfunction grade 2 is present. Mild concentric LVH. Right Ventricle Right ventricular chamber dimension is normal. Right ventricular systolic function is normal. Linear artifact in right ventricle suggestive of pacemaker lead(s), or ICD lead(s). Left Atria Left atrial chamber dimension is mildly enlarged. Right Atria Right atrial chamber dimension is normal. Linear artifact in the right atrium suggestive of catheter(s), pacemaker lead(s), or ICD lead(s). Aortic Valve The aortic valve is trileaflet. There is mild aortic valve sclerosis. There is no aortic valve stenosis. There is no aortic valve regurgitation. Pulmonic Valve The pulmonic valve is normal. There is no pulmonic valve stenosis. There is trace pulmonic regurgitation. Mitral Valve The mitral valve has calcified annulus. There is no mitral valve stenosis. There is mild mitral valve regurgitation. Tricuspid Valve The tricuspid valve leaflets are normal. There is no significant tricuspid valve stenosis. There is mild tricuspid valve regurgitation. Mild pulmonary hypertension, estimated pulmonary arterial systolic pressure is 40 mmHg. Pericardium/Pleural The pericardium appears normal. There is no pericardial effusion. Inferior Vena Cava Normal inferior vena cava with >50% collapse upon inspiration consistent with Empty right atrial pressure, 10 mmHg. Aorta The aortic root size at the sinus of Valsalva is normal. The prox ascending aorta size is normal. Left Ventricular Outflow Tract Name Value Normal LVOT 2D
[2019-08-14] MEDS: RIVAROXABAN 15 MG TABLET PO (16:34)
[2019-08-14 16:48] LABS: Glucose Point of Care 210 (65-105)
[2019-08-14] MEDS: INSULIN ASPART (*BKC) 100 UNITS/ML SUB-Q (16:55)
--- NOTE | 2019-08-14 18:12 | PM.IMPN ---
Progress Note: A&P Assessment and Plan (1) Atrial fibrillation with rapid ventricular response: Code(s): I48.91 - Unspecified atrial fibrillation Status: Acute Assessment and Plan: Patient was placed on IV diltiazem on admission. Cardiology has been consulted and appreciate input. Patient changed to oral sotalol on 08/12/2019 by Cardiology in attempt to chemically convert and IV diltiazem. Patient remains in AFib. Possible cardioversion in the morning if persistent AFib. On Xarelto for anticoagulation. Discussed with Cardiology: patient would need a RAFI since she did miss some of her Xareto doses. Will continue to monitor. Continue PT/OT. (2) Hypokalemia: Code(s): E87.6 - Hypokalemia Status: Acute Assessment and Plan: Potassium at 4.8 today. Will continue current replacement of 20 mEq daily. Patient reports she was taking this at home. Will continue to monitor. Adjust replacement as needed. (3) ARF (acute renal failure): Qualifiers: Acute renal failure type: unspecified Qualified Code(s): N17.9 - Acute kidney failure, unspecified Code(s): N17.9 - Acute kidney failure, unspecified Status: Acute Assessment and Plan: Cr 1.9 on admission which is higher than her baseline. Home olmesartan/HCTZ remains on hold. Cr better today at 1.4. Will continue to monitor. (4) Bronchitis: Code(s): J40 - Bronchitis, not specified as acute or chronic Status: Acute Assessment and Plan: Chest x-ray on admission showing with no acute cardiopulmonary disease. Remains on room air. Was on IV azithromycin and ceftriaxone but switched to oral cefdinir. Sputum growing Strept pneumoniae and Group F streptococcus. Clinically improving. Will continue to monitor. (5) Asthma with exacerbation: Qualifiers: Asthma persistence: persistent Asthma severity: moderate Qualified Code(s): J45.41 - Moderate persistent asthma with (acute) exacerbation Code(s): J45.901 - Unspecified asthma with (acute) exacerbation Status: Acute Assessment and Plan: Improving. Continue nebulizer treatments and prednisone taper. (6) HTN (hypertension): Qualifiers: Hypertension type: essential hypertension Qualified Code(s): I10 - Essential (primary) hypertension Code(s): I10 - Essential (primary) hypertension Status: Chronic Assessment and Plan: Blood pressure reviewed on 08/14/2019. BP remains well controlled. Continue to monitor with sotalol in place. Home olmesartan/HCTZ remains on hold. (7) Hyperlipidemia: Qualifiers: Hyperlipidemia type: unspecified Qualified Code(s): E78.5 - Hyperlipidemia, unspecified Code(s): E78.5 - Hyperlipidemia, unspecified Status: Chronic Assessment and Plan: Stable. Continue atorvastatin. (8) Depression: Qualifiers: Depression Type: unspecified Qualified Code(s): F32.9 - Major depressive disorder, single episode, unspecified Code(s): F32.9 - Major depressive disorder, single episode, unspecified Status: Chronic Assessment and Plan: Mood is stable. Continue duloxetine. (9) Anxiety: Code(s): F41.9 - Anxiety disorder, unspecified Status: Chronic Assessment and Plan: As above (10) DVT prophylaxis: Code(s): Z29.9 - Encounter for prophylactic measures, unspecified Status: Acute Assessment and Plan: On Xarelto. Subjective Date/time seen: 08/14/19 18:12 Interval history: 79yo femal admitted with atrial fibrillation with RVR, bronchitis, and acute renal failure. Assuming care. Chart reviewed. Cough productive of green sputum. She feels much better today. Eating normally. No CP. SOB better. She had been up walking in the room and up to the chair. Exam Narrative: Exam Narrative: Gen - NARD Chest - few scattered rhonchi, nml RR
[2019-08-14] MEDS: ATORVASTATIN 20 MG TABLET PO (20:14)
[2019-08-14 20:54] LABS: Glucose Point of Care 164 (65-105)
[2019-08-15] VITALS (16 sets, daily range): BP systolic 115–148; BP diastolic 42–54; PULSE 52–84; RESP 16–22; TEMP 36.2–36.6; O2SAT 93–98
[2019-08-15] MEDS: ALBUTEROL SULFATE NEB 2.5 MG/0.5 ML INH 5 MG INHALATION ×3 (03:14→14:04)
[2019-08-15] MEDS: IPRATROPIUM BR 0.02% INH SOLN 0.5 MG/2.5 ML VIAL INHALATION ×3 (03:15→14:04)
[2019-08-15 05:07] LABS: Hematocrit 29.9 % (37.0-47.0); Hemoglobin 9.4 g/dL (12.0-15.0); Mean Corpuscular HGB Conc 31.4 g/dl (32-36); Mean Corpuscular Hemoglobin 27.7 pg (26-34); Mean Corpuscular Volume 88.2 fl (80-100); Mean Platelet Volume 9.7 fl (7.4-10.4); Platelet Count Result 290 k/mm3 (150-375); Red Blood Count 3.39 M/mm3 (4.2-5.4); Red Cell Distribution Width 14.3 % (11.5-14.5); White Blood Count 16.6 K/mm3 (4.5-10.0)
[2019-08-15 05:14] LABS: Blood Urea Nitrogen 61 mg/dL (7-17); Calcium 9.5 mg/dL (8.4-10.2); Carbon Dioxide 28 mmol/L (22-30); Chloride 106 mmol/L (98-107); Estimated CRCL calculation 35 ml/min; Estimated Glomerular Filt Rate 40; Glucose 153 mg/dL (65-105); Magnesium 2.2 mg/dL (1.6-2.3); Potassium 5.4 mmol/L (3.4-5.0); Sodium 138 mmol/L (137-145)
--- NOTE | 2019-08-15 07:30 | ECG_ITS ---
Measurements Intervals [place] Rate: 55 P: 141 TX: 180 QRS: -2 QRSD: 88 T: 20 QT: 453 QTc: 436 Interpretive Statements ELECTRONIC ATRIAL PACEMAKER ATYPICAL ECG Electronically Signed On 08-15-2019 10:12:32 PC MAINTENANCE TECHNICIAN by Gregor Cameron D.O.
[2019-08-15] MEDS: DULOXETINE 60 MG CAPSULE.DR PO (09:34)
[2019-08-15] MEDS: predniSONE 10 MG TABLET 40 MG PO (09:34)
[2019-08-15] MEDS: BENZONATATE 100 MG CAPSULE 200 MG PO (09:34)
[2019-08-15] MEDS: CEFDINIR 300 MG CAPSULE PO (09:34)
[2019-08-15] MEDS: SOTALOL HCL 80 MG TABLET PO (09:35)
[2019-08-15 12:18] LABS: Potassium 4.8 mmol/L (3.4-5.0)
--- NOTE | 2019-08-15 13:24 | PM.PNCARD ---
Progress Note: A&P Assessment and Plan (1) Atrial fibrillation with rapid ventricular response: Code(s): I48.91 - Unspecified atrial fibrillation Status: Acute Assessment and Plan: Converted to normal sinus rhythm at 18:14 on 08/14/2019. Has maintained sinus rhythm or atrially paced rhythm overnight. EKG this morning personally reviewed atrially paced rhythm with intrinsic ventricular activity. QTc 436 millisecond (2) HTN (hypertension): Qualifiers: Hypertension type: essential hypertension Qualified Code(s): I10 - Essential (primary) hypertension Code(s): I10 - Essential (primary) hypertension Status: Chronic Assessment and Plan: Controled. (3) Pacemaker: Code(s): Z95.0 - Presence of cardiac pacemaker Status: Acute Assessment and Plan: Pacemaker interrogation 08/13/[address] Taylor. Persistent atrial fibrillation for the past 6 days with intermittent episodes prior to that. Normal device function. (4) ARF (acute renal failure): Qualifiers: Acute renal failure type: unspecified Qualified Code(s): N17.9 - Acute kidney failure, unspecified Code(s): N17.9 - Acute kidney failure, unspecified Status: Acute Assessment and Plan: Renal function stable. Dosing of Xarelto according to renal function most appropriate with 15 mg at bedtime. Additional Plan OK to discharge from cardiac standpoint See discharge instructions for follow-up Plan discussed with Dr. Orozco [id number] 08/15/2019 Subjective Date/time seen: 08/15/19 13:24 Interval history: Follow-up for: Atrial fibrillation with rapid ventricular response, acute renal failure, bronchitis Date of service: 08/15/2019 Subjective: Sore and tired. Denied chest discomfort. No shortness of breath. Continues to have cough. No lightheadedness. Review of Systems Constitutional: Constitutional: Denies chills, Denies fatigue and Denies night sweats Eyes: Eyes: Denies blurry vision ENT: Reports Normal hearing present, Denies lip swelling and Denies epistaxis Cardiovascular: Cardiovascular: Denies chest pain at rest, Denies chest pain with activity, Denies dyspnea and Denies dyspnea on exertion Respiratory: Respiratory: Reports cough (Occasionally productive of green secretions), Denies dyspnea and Denies dyspnea on exertion Gastrointestinal: Gastrointestinal: Reports abdominal pain (Muscular from cough), Denies melena, Denies hematochezia, Denies nausea and Denies vomiting Genitourinary: Genitourinary: Denies hematuria Musculoskeletal: Musculoskeletal: Reports no additional musculoskeletal complaints and Reports as per HPI Integumentary/Breasts: Skin/Breast: Denies unusual bruising Neurologic: Reports Normal hearing present and Denies behavioral changes Psychiatric: Psychiatric: Denies behavioral changes Endocrine: Endocrine: Denies fatigue Hematologic/Lymphatic: Hematologic/Lymphatic: Denies easy bleeding and Denies easy bruising Allergic/Immunologic: Allergic/Immunologic: Denies lip swelling Exam Const: General: comfortable and no acute distress Orientation/consciousness: oriented to person, oriented to place, oriented to time and patient oriented x3 Other: Sleeping supine in bed HENMT: Mouth: Yes moist mucous membranes Eyes: Sclera: sclerae normal Neck: Neck: supple and no JVD Resp: Effort & Inspection: normal respiratory effort Auscultation: no crackles, no rales, no wheezes and diminished lung sounds Cardio: Rate: regular rate Rhythm: abnormal rhythm irregularly irregular GI: Inspection: normal to inspection Auscultation: normal bowel sounds Skin: General skin exam: normal color Neuro: General: patient oriented x3 Cranial nerves: Yes Normal hearing present Cogni
[2019-08-15 14:20] LABS: Glucose Point of Care 134 (65-105)
--- NOTE | 2019-08-15 14:49 | PM.DS ---
DS: Diagnosis Admitting Diagnosis Admitting Diagnosis: Bronchitis, not specified as acute or chronic Discharge Diagnosis (1) Atrial fibrillation with rapid ventricular response: Code(s): I48.91 - Unspecified atrial fibrillation Status: Acute Assessment and Plan: Patient was placed on IV diltiazem on admission. Cardiology was consulted and patient changed to oral sotalol on 08/12/2019 in attempt to chemically convert. Patient converted to NSR. Patient remained on Xarelto for anticoagulation. Discussed with Cardiology. Treated with PT/OT. Patient walking to the bathroom (2) Hypokalemia: Code(s): E87.6 - Hypokalemia Status: Acute Assessment and Plan: Potassium was 2.9 on admission. Potassium remained stable after replacement. (3) ARF (acute renal failure): Qualifiers: Acute renal failure type: unspecified Qualified Code(s): N17.9 - Acute kidney failure, unspecified Code(s): N17.9 - Acute kidney failure, unspecified Status: Acute Assessment and Plan: Cr 1.9 on admission which is higher than her baseline. Home olmesartan/HCTZ held. Cr better today at 1.3. (4) Bronchitis: Code(s): J40 - Bronchitis, not specified as acute or chronic Status: Acute Assessment and Plan: Chest x-ray on admission showing with no acute cardiopulmonary disease. Remained on room air. Was on IV azithromycin and ceftriaxone but switched to oral cefdinir. Sputum growing Strept pneumoniae and Group F streptococcus. Clinically improving. Will continue abx. (5) Asthma with exacerbation: Qualifiers: Asthma persistence: persistent Asthma severity: moderate Qualified Code(s): J45.41 - Moderate persistent asthma with (acute) exacerbation Code(s): J45.901 - Unspecified asthma with (acute) exacerbation Status: Acute Assessment and Plan: Symptoms are improving. We continued nebulizer treatments and a prednisone taper. (6) HTN (hypertension): Qualifiers: Hypertension type: essential hypertension Qualified Code(s): I10 - Essential (primary) hypertension Code(s): I10 - Essential (primary) hypertension Status: Chronic Assessment and Plan: Blood pressure monitored closely. BP remained well controlled. Home olmesartan/HCTZ remained on hold. (7) Hyperlipidemia: Qualifiers: Hyperlipidemia type: unspecified Qualified Code(s): E78.5 - Hyperlipidemia, unspecified Code(s): E78.5 - Hyperlipidemia, unspecified Status: Chronic Assessment and Plan: Stable. We continued atorvastatin. (8) Depression: Qualifiers: Depression Type: unspecified Qualified Code(s): F32.9 - Major depressive disorder, single episode, unspecified Code(s): F32.9 - Major depressive disorder, single episode, unspecified Status: Chronic Assessment and Plan: Mood is stable. We continued duloxetine. (9) Anxiety: Code(s): F41.9 - Anxiety disorder, unspecified Status: Chronic Assessment and Plan: As above DS: Summary Hospital Course Reason for hospitalization: 79yo female here for AFib. Please see H&P for details. Hospital Course: As above. Time Spent with Patient Time attestation: Total time spent providing and/or coordinating discharge services: 35 minutes Time spent: Greater than 30 minutes Specific discharge activities: discussed with cardiology Exam Narrative: Exam Narrative: Gen - NARD Chest - CTA bilaterally, nml RR CV - RRR S1/S2 Abd - soft. NT/ND, +BS Ext - Non-pitting pedal edema Psych - Nml mood and affect Skin - Warm and dry DS: Data Data Completed and Pending Labs on day of discharge: Labs from last 24 hours 08/15/19 08/15/19 08/15/19 14:17 11:49 04:04 WBC RBC Hgb Hct MCV MCH MCHC RDW Plt Count MPV Sodium 138 Potassium 4.8 5.4 H
[2019-08-15 18:11] LABS: Glucose Point of Care 109 (65-105)
== END 2019-08-15 17:45 | disposition home health service (06) | DRG 309 ==
LOC: ANHED 12:28 → ANHIMU 19:44
PROVIDERS: Family Medicine; Hospitalist; Internal Medicine; Nurse Practitioner; Admitting Provider Internal Medicine; Emergency Provider Family Medicine; PCP Family Medicine; Visit Provider Internal Medicine
DX: I48.91 Unspecified atrial fibrillation (principal); J45.41 Moderate persistent asthma with (acute) exacerbation; N17.9 Acute kidney failure, unspecified; M19.90 Unspecified osteoarthritis, unspecified site; F41.8 Other specified anxiety disorders; K21.9 Gastro-esophageal reflux disease without esophagitis; I10 Essential (primary) hypertension; Z85.51 Personal history of malignant neoplasm of bladder; E78.5 Hyperlipidemia, unspecified; M81.0 Age-related osteoporosis without current pathological fracture; Z96.652 Presence of left artificial knee joint; F17.210 Nicotine dependence, cigarettes, uncomplicated; Z90.710 Acquired absence of both cervix and uterus; E87.6 Hypokalemia; E86.0 Dehydration; Z95.0 Presence of cardiac pacemaker; J40 Bronchitis, not specified as acute or chronic
CPT/HCPCS: 36415; 71046; 80048; 83735; 84132; 84439; 84443; 84480; 84484; 85025; 85027; 87070; 87077; 87147; 87186; 87205; 93005; 93306; 94640; 94660; 96365; 96376; 97110; 97161; 97165; 97530; 97535; 99285; A9270; J0456; J0696; J1815; J2930; J7030; J7512

== ENCOUNTER 2019-10-25 12:29 | Outpatient (CLI) | payer MEDICARE, SELFPAY ==
--- NOTE | 2019-10-29 13:43 | WPDHOLTEREM ---
Holter/Event Monitor Holter/Event Monitor Date of procedure: 10/29/19 Procedure Type: 24 hour Holter monitor Diagnosis: paroxysmal atrial fibrillation Indications: presumably for evaluation atrial fibrillation Image/Tracing Quality: favorable quality Finding: the baseline rhythm alternates between sinus rhythm with pacemaker inhibition, sometimes atrial pacing with normal intraventricular conduction is seen and other times AV sequential pacing is noted. The heart rate varies from a minimum of 50 to a maximum of 160 the mean rate was 66. The P are interval, QRS and QT intervals are normal. The peak heart rate occurred during an episode of atrial fib with RVR at 10:00 a.m.. Supraventricular ectopic activity consists of occasional to frequent PACs as well as episodes of atrial fibrillation. Total AFib burden is 26.1% ventricular ectopic activity was not seen during this exam. Some of the strips were identified as concerning for ventricular arrhythmias when in fact they were electronically paced patient submitted a diary which indicates there were no symptoms Conclusion: normal sinus rhythm with normally functioning dual-chamber pacing device. Normal pacemaker sensing and capture is demonstrated paroxysmal atrial fibrillation as detailed above Umang Orozco MD FACC
== END 2019-10-25 12:30 | disposition home or self-care (01) ==
LOC: ANHCARD 12:31
PROVIDERS: PCP Family Medicine; Visit Provider Family Medicine
DX: I48.91 Unspecified atrial fibrillation (principal)
CPT/HCPCS: 93225; 93226

== ENCOUNTER 2020-04-23 14:53 | Outpatient (CLI) | payer MEDICARE, SELFPAY ==
--- NOTE | ~2020-04-23 | MM_ITS ---
EXAMINATION: MM screening tod BI w pj HISTORY: Screening mammogram TECHNIQUE: Craniocaudal and mediolateral oblique 3-D tomosynthesis images were obtained and synthetic 2-D images were generated. CAD analysis was submitted and interpreted. COMPARISON: 09/10/2014 diagnostic left digital mammogram 09/04/2014 stereotactic biopsy of left breast 08/15/2014 diagnostic left digital mammogram and limited right breast ultrasound 08/07/2014 bilateral digital screening mammogram 07/15/2008 bilateral digital screening BREAST PARENCHYMAL COMPOSITION: There are scattered areas of fibroglandular density. FINDINGS: There is a biopsy marker on the left; history of prior benign left breast biopsy. Left-sided cardiac pacemaker device. There are scattered bilateral benign calcifications, primarily on the left. There is no evidence of s uspicious mass, calcification, or architectural distortion to suggest malignancy in either breast. Th ere has been no suspicious interval change. IMPRESSION: 1. No mammographic evidence of malignancy. 2. Recommend routine screening mammography in one year. BI-RADS Category 2: Benign findings Reviewed, dictated and finalized at location A. ING INSULATION BLOWER
== END 2020-04-23 14:54 | disposition home or self-care (01) ==
PROVIDERS: PCP Family Medicine; Visit Provider Family Medicine
DX: Z12.31 Encounter for screening mammogram for malignant neoplasm of breast (principal)
CPT/HCPCS: 77063; 77067

== ENCOUNTER 2020-05-22 10:52 | Emergency (ER) | payer MEDICARE, SELFPAY ==
--- NOTE | ~2020-05-22 | XR_ITS ---
XR chest 2V DATE: 05/22/2020 11:17 INDICATION: Cough TECHNIQUE: 2 views COMPARISON: 08/10/2019 AP and lateral chest FINDINGS: Left dual-lead transvenous pacemaker device with leads overlying right atrium and right sherlyn tricle. Normal heart size. No hilar or mediastinal enlargement. No pulmonary infiltrate or consolidation, pleural effusion or pulmonary vascular congestion or pneumo thorax. Diffuse osteopenia. There is degenerative spurring of the thoracic and lumbar spine. IMPRESSION: No active cardiopulmonary disease Reviewed, dictated and finalized at location A. EDICAL SPECIALIST
--- NOTE | 2020-05-22 10:55 | ED.URI ---
HPI - URI/Sore Throat General Chief Complaint: Upper Respiratory Infection Stated Complaint: cough Time Seen by Provider: 05/22/20 11:05 Source: patient and RN notes reviewed Mode of arrival: ambulatory Limitations: no limitations History of Present Illness HPI Narrative: 80-year-old female with history of afib presents with concern for 3-day history of cough, fatigue, rhinorrhea. Reports family members that she lives with have had cold symptoms, one family member has had a negative Covid test. She denies body aches, chills, sweats, fever, nasal congestion, sore throat, loss of sense of taste or smell. Reports taking Tylenol for her symptoms MD elicited complaint: cough Related Data Home Medications Medication Instructions Recorded Confirmed albuterol sulfate [ProAir HFA] 1 inh INHALATION QID 08/10/19 08/10/19 atorvastatin 20 mg PO HS 08/10/19 05/22/20 olmesartan-hydrochlorothiazide 1 tablet PO DAILY 08/10/19 08/10/19 amiodarone 200 mg PO BID 05/22/20 05/22/20 escitalopram oxalate 20 mg PO DAILY 05/22/20 05/22/20 metoprolol tartrate 25 mg PO BID 05/22/20 05/22/20 Allergies Allergy/AdvReac Type Severity Reaction Status Date / Time iodine Allergy Severe DIFF Verified 05/22/20 11:01 BREATHING, BACK,LEG PAIN AFTER CONTRAST morphine AdvReac Severe Vomiting Verified 05/22/20 11:01 Review of Systems Review of Systems: Narrative: CONSTITUTIONAL: Denies malaise, chills, sweats, or fever. EYES: Denies visual changes, redness, or discharge. ENT: Reports rhinorrhea. Denies congestion, sinus pain, otalgia and sore throat. CARDIOVASCULAR: Denies chest pain, palpitations, or edema. RESPIRATORY: Reports cough, baseline dyspnea. GASTROINTESTINAL: Denies abdominal pain, nausea, vomiting, diarrhea SKIN: Denies rash or itching. MUSCULOSKELETAL: Denies myalgia. NEUROLOGIC: Denies headache. All systems reviewed & are unremarkable except as noted in HPI and below PMFSH Past Medical History Medical History (Updated 05/22/20 @ 11:29 by Leatha Reynoso NP) Afib Anemia Ankle fracture, left Casted Ankle fracture, right Casted Anxiety Arthritis Asthma Bladder cancer Surgically removed Bronchitis DDD (degenerative disc disease) Depression GERD (gastroesophageal reflux disease) HTN (hypertension) Hyperlipidemia Kidney stones Left trigger finger Nose fracture MISTI on CPAP No longer uses CPAP Osteoporosis Ovarian cyst Right carpal tunnel syndrome Released Right rotator cuff tear Surgical History Surgical History (System 08/15/19 @ 09:26 by Harleen Zacarias) H/O colonoscopy H/O dilation and curettage H/O repair of right rotator cuff H/O tubal ligation History of bladder surgery History of carpal tunnel release History of left knee replacement Hx of tonsillectomy S/P removal of ovarian cyst Social History Social History (System 08/15/19 @ 09:26 by Harleen Zacarias) Social History: The patient stated that she smokes a cigarette occasionally when she drinks. She stated this is very rare. She has 1 biological daughter and she adopted a granddaughter who lives with her. The granddaughter and her 2 children live with the patient. The patient is from her and he lives with his daughter. 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 She retired from [employer]. Smoking status: Current some day smoker Alcohol intake: never Substance use: never Gender identity (if verbalized by the patient): Female Spiritual care concerns: No Agree to blood products: Yes Comments At time of signature, agree with nursing past medical, surgical, social and family history. There is no relevant family history pertinent to the presenting complaint Exam Narrative: Exam Narrative: GENERAL: Well-appearing, well-nourished, and in no acute distress. HEAD: Normocephalic EYES: PERRLA, conjunctivae clear ENT: Nares clear, no sinus tenderness. Mucous membranes
[2020-05-22 11:01] VITALS: BP 172/99; PULSE 109; RESP 18; TEMP 36.4; O2SAT 98
== END 2020-05-22 11:44 | disposition home or self-care (01) ==
PROVIDERS: Emergency Provider Nurse Practitioner
DX: J06.9 Acute upper respiratory infection, unspecified (principal); Z20.828 Contact with and (suspected) exposure to other viral communicable diseases; Z72.0 Tobacco use; I48.91 Unspecified atrial fibrillation; D64.9 Anemia, unspecified; F41.9 Anxiety disorder, unspecified; M19.90 Unspecified osteoarthritis, unspecified site; J45.909 Unspecified asthma, uncomplicated; Z85.51 Personal history of malignant neoplasm of bladder; F32.9 Major depressive disorder, single episode, unspecified; K21.9 Gastro-esophageal reflux disease without esophagitis; I10 Essential (primary) hypertension; E78.5 Hyperlipidemia, unspecified; G47.33 Obstructive sleep apnea (adult) (pediatric); M81.0 Age-related osteoporosis without current pathological fracture; Z96.642 Presence of left artificial hip joint
CPT/HCPCS: 71046; 99213; G0463

== ENCOUNTER 2020-05-23 06:57 | Outpatient (NON) | payer MEDICARE, SELFPAY ==
[2020-05-23 18:45] LABS: SARS-CoV-2 RNA PCR Negative
== END 2020-05-23 06:58 ==
LOC: ANHCOVIDDT 07:06
PROVIDERS: Visit Provider Nurse Practitioner
DX: R05 Cough (principal); Z20.828 Contact with and (suspected) exposure to other viral communicable diseases
CPT/HCPCS: 87635; C9803; U0003

== ENCOUNTER 2020-08-28 08:44 | Outpatient (CLI) | payer MEDICARE, SELFPAY | END 2020-08-28 08:45 | disposition home or self-care (01) | LOC: ANHCOVIDVC 08:44 | PROVIDERS: PCP Internal Medicine Cardiovascular Disease | DX: Z23 Encounter for immunization (principal) | CPT/HCPCS: 0001A; 91300 ==

== ENCOUNTER 2020-09-18 08:45 | Outpatient (CLI) | payer MEDICARE, SELFPAY | END 2020-09-18 08:46 | disposition home or self-care (01) | LOC: ANHCOVIDVC 08:45 | PROVIDERS: PCP Internal Medicine Cardiovascular Disease | DX: Z23 Encounter for immunization (principal) | CPT/HCPCS: 0002A; 91300 ==

== ENCOUNTER 2021-03-02 08:40 | Outpatient (CLI) | payer MEDICARE, SELFPAY ==
[2021-03-02 09:27] LABS: Basophils Percent Auto 0.4 % (0.2-1.2); Eosinophils Absolute Auto 0.2 K/mm3 (0-0.3); Eosinophils Percent Auto 3.4 % (0-4.4); Hematocrit 36.5 % (37.0-47.0); Hemoglobin 11.8 g/dL (12.0-15.0); Immature Granulocyte Absolute 0.02 K/mm3 (0.00-0.031); Immature Granulocyte Percent A 0.4 % (0-0.5); Lymphocytes Percent Auto 28.5 % (18.3-44.2); Mean Corpuscular HGB Conc 32.3 g/dl (32-36); Mean Corpuscular Hemoglobin 29.4 pg (26-34); Mean Corpuscular Volume 90.8 fl (80-100); Mean Platelet Volume 9.5 fl (7.4-10.4); Monocytes Absolute Auto 0.4 K/mm3 (0.1-0.6); Monocytes Percent Auto 6.4 % (2.6-8.5); Neutrophils Absolute Auto 3.4 K/mm3 (1.3-6.7); Neutrophils Percent Auto 60.9 % (45.5-73.1); Platelet Count Result 173 k/mm3 (150-375); Red Blood Count 4.02 M/mm3 (4.2-5.4); Red Cell Distribution Width 14.2 % (11.5-14.5); White Blood Count 5.6 K/mm3 (4.5-10.0)
[2021-03-02 09:37] LABS: Add Urine Microscopic? YES; Appearance Urine Clear (Clear); Bacteria Urine Trace /hpf; Bilirubin Urine Negative (Negative); Blood Urine Negative (Negative); Color Urine Yellow (Yellow); Glucose Urine UA Negative (Negative); Ketones Urine Negative (Negative); Leukocyte Esterase Ur Negative LEU/UL (NEGATIVE); Mucus Urine Rare /lpf; Nitrate Urine Negative (Negative); Protein Urine Negative (Negative); Squamous Epithelial Cell Urine Few /hpf (Few); WBC Urine 0-3 /hpf (0-3)
[2021-03-02 09:39] LABS: Alanine Aminotransferase 15 U/L (4-35); Albumin Level 4.2 g/dL (3.5-5.1); Alkaline Phosphatase 78 U/L (38-126); Anion Gap 8 mmol/L (8-16); Aspartate Amino Transferase 25 U/L (14-36); Bilirubin,Total 0.7 mg/dL (0.2-1.3); Blood Urea Nitrogen 17 mg/dL (7-17); Calcium 9.4 mg/dL (8.4-10.2); Carbon Dioxide 29 mmol/L (22-30); Chloride 104 mmol/L (98-107); Cholesterol 176 mg/dL (0-200); Estimated Glomerular Filt Rate 60; Glucose 92 mg/dL (65-110); HDL Direct 44 mg/dL; Potassium 3.8 mmol/L (3.4-5.0); Sodium 141 mmol/L (137-145); Triglycerides 95 mg/dL (<150)
[2021-03-02 09:50] LABS: LDL Cholesterol Direct 83 mg/dL
[2021-03-02 12:48] LABS: Free T4 Free Thyroxine 1.26 ng/mL (0.78-2.19); Vitamin D 25 Hydroxy 24.4 ng/mL
== END 2021-03-02 08:41 | disposition home or self-care (01) ==
LOC: ANHLAB 08:45
PROVIDERS: PCP Family Medicine; Visit Provider Nurse Practitioner
DX: Z00.00 Encounter for general adult medical examination without abnormal findings (principal); I48.0 Paroxysmal atrial fibrillation; Z95.0 Presence of cardiac pacemaker; I12.9 Hypertensive chronic kidney disease with stage 1 through stage 4 chronic kidney disease, or unspecified chronic kidney disease; N18.2 Chronic kidney disease, stage 2 (mild); E55.9 Vitamin D deficiency, unspecified; R80.9 Proteinuria, unspecified
CPT/HCPCS: 36415; 80053; 80061; 81001; 82306; 84439; 84443; 84480; 85025

== ENCOUNTER 2021-04-16 12:40 | Outpatient (CLI) | payer MEDICARE, SELFPAY ==
--- NOTE | ~2021-04-16 | DEXA_ITS ---
Bone Density Report Name: Colleen James Age: 81 Sex: Female Ethnicity: White Date of : 1940 Indication: osteopenia; height loss; cancer; postmenopausal Referring Provider: Eric, Sophia Study: Bone densitometry was performed. Exam Date: April 16, 2021 Accession number: [id number] Bone Density: Region BMD T-score Z-score Classification AP Spine (L1-L4) 0.812 -2.1 0.6 Osteopenia Femoral Neck (Left) 0.605 -2.2 0.1 Osteopenia Total Hip (Left) 0.771 -1.4 0.7 Osteopenia Total Hip Bilateral Avg 0.741 -1.7 0.4 Osteopenia Femoral Neck (Right) 0.591 -2.3 0.0 Osteopenia Total Hip (Right) 0.709 -1.9 0.2 Osteopenia World Health Organization criteria for BMD impression classify patients as: Normal (T-score at or above -1.0), Osteopenia (T-score between -1.0 and -2.5), or Osteoporosis (T-score at or below -2.5). 10-year Fracture Risk(1): Major Osteoporotic Fracture 17% Hip Fracture 5.4% Reported Risk Factors: [place] (), Neck BMD=0.591, BMI=28.7 (1) FRAX(R) Version 3.08. Fracture probability calculated for an untreated patient. Fracture probability may be lower if the patient has received treatment. Previous Exams: Region Exam Age BMD T-score BMD Change BMD Change Date g/cm2 vs Baseline vs Previous AP Spine(L1-L4) 04/16/2021 81 0.812 -2.1 -0.049(-5.7%)# -0.049(-5.7%)# 04/16/2005 65 0.861 -1.7 Total Hip(Left) 04/16/2021 81 0.771 -1.4 -0.165(-17.6%) -0.165(-17.6%) 04/16/2005 65 0.936 0.0 Total Hip(Right) 04/16/2021 81 0.709 -1.9 -0.161(-18.5%) -0.161(-18.5%) 04/16/2005 65 0.870 -0.6 *Denotes significance at 95% confidence level, LSC for AP Spine = 0.022 g/cm2, LSC for Total Hip = 0.027 g/cm2 Clinical Information Provided by Patient: Has the following medical conditions: Cancer Patient maximum height was 67.5 Menopause Age: 41 No regular weight bearing exercise Drinks caffeinated beverages Onset of menses at age 14 Number of children 1 Impression: The patient has low bone mass, based on the Right Femoral Neck T-score. The patient has an estimated ten-year risk of hip fracture of 5.4% and an estimated ten-year risk of major fracture of 17%, based on the WHO FRAX algorithm. No significant bone loss was observed. Discussion: BONE DENSITY IS LOW AT ONE OR MORE SKELETAL SITES. THE PATIENT'S BMD AND CLINICAL RISK FACTORS CONTRIBUTE TO THIS PATIENT'S INCREASED RISK OF FRACTURE. This patient's lowest T-score
--- NOTE | ~2021-04-16 | MM_ITS ---
EXAMINATION: MM screening [facility] BI w pj HISTORY: Screening TECHNIQUE: Craniocaudal and mediolateral oblique 3-D tomosynthesis images were obtained and synthetic 2-D images were generated. CAD analysis was submitted and interpreted. COMPARISON: Comparison to multiple prior studies sequentially, with oldest reviewed study dated 10/2014. BREAST PARENCHYMAL COMPOSITION: There are scattered areas of fibroglandular density. FINDINGS: There are clustered indeterminate calcifications centered in the upper outer quadrant of th e left breast. The right breast is stable without evidence for malignancy. IMPRESSION: 1. Developing cluster of indeterminate left breast calcifications. 2. Magnification views are recommended. BI-RADS Category 0: Incomplete: Needs additional imaging evaluation. Reviewed, dictated and finalized at location A.
== END 2021-04-16 12:41 | disposition home or self-care (01) ==
LOC: ANHIMG 12:42
PROVIDERS: PCP Family Medicine; Visit Provider Nurse Practitioner Family
DX: Z12.31 Encounter for screening mammogram for malignant neoplasm of breast (principal); Z78.0 Asymptomatic menopausal state; R92.8 Other abnormal and inconclusive findings on diagnostic imaging of breast; M85.88 Other specified disorders of bone density and structure, other site; M85.852 Other specified disorders of bone density and structure, left thigh; M85.851 Other specified disorders of bone density and structure, right thigh
CPT/HCPCS: 77063; 77067; 77080

== ENCOUNTER 2021-05-20 12:50 | Outpatient (CLI) | payer MEDICARE, SELFPAY ==
--- NOTE | ~2021-05-20 | MM_ITS ---
EXAMINATION: MM diagnostic mammo unilat LT HISTORY: Follow-up left breast calcifications TECHNIQUE: Additional 3-D tomosynthesis images of the left breast were performed and synthetic 2-D im ages were generated. CAD analysis was submitted and interpreted. COMPARISON: Comparison to multiple prior studies sequentially, with oldest reviewed study dated 09/10. BREAST PARENCHYMAL COMPOSITION: Breast composed of scattered areas of fibroglandular density. FINDINGS: With spot magnification and mediolateral views of the clustered calcifications in the upper outer quadrant of the left breast are not significantly changed from 04/23/2020 For technique, likely benign. No suspicious masses or architectural distortion. IMPRESSION: 1. Probable benign left breast calcifications. 2. Recommend 6 month follow-up diagnostic left mammogram BI-RADS category 3, probably benign findings. Reviewed, dictated and finalized at location A. EAU ANALYST
== END 2021-05-20 12:51 | disposition home or self-care (01) ==
LOC: ANHIMG 12:52
PROVIDERS: PCP Family Medicine; Visit Provider Nurse Practitioner Family
DX: R92.8 Other abnormal and inconclusive findings on diagnostic imaging of breast (principal)
CPT/HCPCS: 77065

== ENCOUNTER 2022-09-03 09:57 | Outpatient (CLI) | payer MEDICARE, SELFPAY ==
--- NOTE | ~2022-09-03 | CT_ITS ---
CT head without contrast Indication: Unstable gait COMPARISON: 12/16/2012 Technique: Serial scans were obtained through the brain without the administration of contrast. Dose reduction technique was used on this scan by utilizing automated exposure control and iterative recon struction technique. The dose-length product (DLP) was 605.33 mGy-cm. Findings: There is no evidence of intracranial hemorrhage, mass lesion, or acute infarct. The ventri cles and subarachnoid spaces are dilated, consistent with mild atrophy. Low attenuation regions are seen within the periventricular white matter bilaterally, likely representing changes from chronic mi crovascular ischemic disease. There is no evidence of edema, mass effect or midline shift. The visu alized paranasal sinuses and mastoid air cells are clear. Impression: No intracranial hemorrhage, mass, or acute infarct. Atrophy and chronic white matter changes, as above. Reviewed, dictated and finalized at [facility]. Impression: No intracranial hemorrhage, mass, or acute infarct. Atrophy and chronic white matter changes, as above.
== END 2022-09-03 09:58 | disposition home or self-care (01) ==
PROVIDERS: PCP Family Medicine; Visit Provider Internal Medicine Cardiovascular Disease
DX: R26.89 Other abnormalities of gait and mobility (principal); R93.0 Abnormal findings on diagnostic imaging of skull and head, not elsewhere classified
CPT/HCPCS: 70450

== ENCOUNTER 2022-09-06 07:53 | Outpatient (CLI) | payer MEDICARE, SELFPAY ==
[2022-09-06 08:34] LABS: Basophils Percent Auto 0.5 % (0.2-1.2); Eosinophils Absolute Auto 0.1 K/mm3 (0-0.3); Eosinophils Percent Auto 1.9 % (0-4.4); Hemoglobin 12.9 g/dL (12.0-15.0); Immature Granulocyte Absolute 0.01 K/mm3 (0.00-0.031); Immature Granulocyte Percent A 0.2 % (0-0.5); Lymphocytes Percent Auto 26.3 % (18.3-44.2); Mean Corpuscular HGB Conc 32.3 g/dl (32-36); Mean Corpuscular Hemoglobin 29.8 pg (26-34); Mean Corpuscular Volume 92.4 fl (80-100); Mean Platelet Volume 9.3 fl (7.4-10.4); Monocytes Absolute Auto 0.4 K/mm3 (0.1-0.6); Monocytes Percent Auto 7.2 % (2.6-8.5); Neutrophils Absolute Auto 3.6 K/mm3 (1.3-6.7); Neutrophils Percent Auto 63.9 % (45.5-73.1); Platelet Count Result 190 k/mm3 (150-375); Red Blood Count 4.33 M/mm3 (4.2-5.4); Red Cell Distribution Width 14.5 % (11.5-14.5); White Blood Count 5.7 K/mm3 (4.5-10.0)
[2022-09-06 08:44] LABS: Alanine Aminotransferase 18 U/L (6-35); Albumin Level 4.4 g/dL (3.5-5.1); Alkaline Phosphatase 92 U/L (38-126); Anion Gap 9 mmol/L (8-16); Aspartate Amino Transferase 23 U/L (14-36); Bilirubin,Total 0.7 mg/dL (0.2-1.3); Blood Urea Nitrogen 23 mg/dL (7-17); Calcium 9.5 mg/dL (8.4-10.2); Carbon Dioxide 29 mmol/L (22-30); Chloride 102 mmol/L (98-107); Cholesterol 220 mg/dL (0-200); Estimated Glomerular Filt Rate 60; Glucose 102 mg/dL (65-110); HDL Direct 48 mg/dL; Potassium 4.5 mmol/L (3.4-5.0); Sodium 140 mmol/L (137-145); Triglycerides 115 mg/dL (<150)
[2022-09-06 08:55] LABS: LDL Cholesterol Direct 127 mg/dL
[2022-09-06 09:00] LABS: Hemoglobin A1C 5.3 % (<5.7)
[2022-09-06 09:16] LABS: Total Triiodothyronine (T3) 1.07 NG/ML (0.97-1.69)
[2022-09-06 10:21] LABS: Free T4 Free Thyroxine 1.23 ng/mL (0.78-2.19)
== END 2022-09-06 07:54 | disposition home or self-care (01) ==
PROVIDERS: PCP Family Medicine; Visit Provider Internal Medicine Cardiovascular Disease
DX: R42 Dizziness and giddiness (principal); R26.89 Other abnormalities of gait and mobility; Z95.0 Presence of cardiac pacemaker; R00.1 Bradycardia, unspecified; Z82.3 Family history of stroke; I48.0 Paroxysmal atrial fibrillation; I48.92 Unspecified atrial flutter; I10 Essential (primary) hypertension; I34.0 Nonrheumatic mitral (valve) insufficiency; I42.9 Cardiomyopathy, unspecified; G47.33 Obstructive sleep apnea (adult) (pediatric); J45.909 Unspecified asthma, uncomplicated
CPT/HCPCS: 36415; 80053; 80061; 83036; 84439; 84443; 84480; 85025

== ENCOUNTER 2025-05-14 10:02 | Outpatient (CLI) | payer MEDICARE, SELFPAY ==
--- NOTE | ~2025-05-14 | CT_ITS ---
EXAMINATION: CTA brain DATE: 05/14/2025 10:41 INDICATION: Recent fall. TECHNIQUE: Computed tomographic angiography (CTA) of the head was performed without and with 100 mL Omnipaque-350 intravenous contrast. Automated exposure control and iterative reconstruction technique were employed. The dose-length product was 996.19 mGy-cm. Maximum intensity projection 3D reconstructions were created. Volume-rendered 3D reconstructions of the intracranial arteries were created by the technologist on a separate workstation. COMPARISON: Head CT 09/03/2022 FINDINGS: There are scattered areas of low attenuation in the cerebral white matter. There is no intracranial hemorrhage, acute infarction, or abnormal intracranial mass lesion. The ventricles are normal in size. There are likely changes of ocular lens replacement surgeries. There is mild mucosal thickening in the paranasal sinuses. The mastoid air cells are normal. Right vertebral artery is dominant. There is no significant stenosis of basilar artery or the posterior cerebral arteries. There is no significant stenosis of the intracranial internal carotid arteries or anterior or middle cerebral arteries. Anterior communicating artery is normal. The posterior communicating arteries are normal. There is no aneurysm. IMPRESSION: 1. Stable extensive nonspecific cerebral white matter disease, which likely represents chronic small vessel ischemic disease. 2. No aneurysm or significant intracranial arterial stenosis. Reviewed, dictated and finalized at location E. LED LABOR IMPRESSION: 1. Stable extensive nonspecific cerebral white matter disease, which likely rep resents chronic small vessel ischemic disease. 2. No aneurysm or significant intracranial arterial stenosis.
[2025-05-14 10:42] LABS: Estimated Glomerular Filt Rate 53
== END 2025-05-14 10:03 | disposition home or self-care (01) ==
PROVIDERS: PCP Family Medicine; Visit Provider Internal Medicine Cardiovascular Disease
DX: Z91.81 History of falling (principal); R90.82 White matter disease, unspecified
CPT/HCPCS: 70496; Q9967